=== PATIENT | male | born 1965 | race Caucasian/White ===

== ENCOUNTER 2017-02-20 08:30 | Emergency (ER) | payer SELFPAY ==
[~2017-02-20] VITALS: Ht 165.1 cm; Wt 56.7 kg
[~2017-02-20 08:30] MED LIST: AMOX-358 PO; ASPI81TA55 PO; ATOR20TA49 PO; BNZ20T PO; CARI350T27 PO; CEPH-38 PO; CEPH500C PO; CIPR500T78 PO; CLON1TAB3; DIAZ5TAB3 PO; HYDR-2997 PO; HYDR-757 PO; HYDR12.56; HYDR1TAB PO; NAPR-243 PO; ONDA8TAB13 PO; PHN100C PO; TRAM50TA2 PO
--- NOTE | 2017-02-20 09:36 | Diagnostic Imaging Report ---
3 views of the left hand. INDICATION: Injury and pain to the second and fifth digits. FINDINGS: There is a dorsal and medial dislocation of the PIP joint of the little finger. No fracture seen. No radiopaque foreign body. IMPRESSION: Dorsal dislocation of the PIP joint in the little finger. Dictated by: Dictated on workstation # [id number]
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
[2017-02-20 09:57] VITALS: BP 132/90
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
== END 2017-02-20 09:57 | disposition home or self-care (01) ==
LOC: EDUNIT# 08:30 → ER 08:33
DX: S63.287A Dislocation of proximal interphalangeal joint of left little finger, initial encounter (principal); I10 Essential (primary) hypertension; F41.9 Anxiety disorder, unspecified; Z79.82 Long term (current) use of aspirin; Z87.81 Personal history of (healed) traumatic fracture; V86.09XA Driver of other special all-terrain or other off-road motor vehicle injured in traffic accident, initial encounter
CPT/HCPCS: 26770; 29130; 73130

== ENCOUNTER 2017-04-29 11:52 | Observation (INO) | payer OTHER ==
[~2017-04-29] VITALS: Ht 165.1 cm; Wt 58.7 kg
[2017-04-29] MEDS ORDERED: ASPIRIN 81 MG CHEW (CHILDREN'S ASA) PO ONE (12:00)
[2017-04-29] MEDS ORDERED: RX-NITROGLYCERIN 0.4 MG TAB BTL 25'S SL PRN (12:00)
[2017-04-29 12:17] LABS: BASOPHILS # (AUTO) 0.1 10^3/uL (0.0-0.1); BASOPHILS % (AUTO) 1 % (0-10); EOSINOPHILS # (AUTO) 0.5 10^3/uL (0.0-0.3); EOSINOPHILS % (AUTO) 6 % (0-10); LYMPHOCYTES # (AUTO) 2.2 X 10^3 (1.0-4.0); LYMPHOCYTES % (AUTO) 24 % (12-44); MEAN CORPUSCULAR HEMOGLOBIN 32 PG (25-34); MEAN CORPUSCULAR HGB CONC 34 G/DL (32-36); MEAN CORPUSCULAR VOLUME 95 FL (80-99); MEAN PLATELET VOLUME 9.3 FL (7.4-10.4); MONOCYTES # (AUTO) 1.6 X 10^3 (0.0-1.0); MONOCYTES % (AUTO) 18 % (0-12); NEUTROPHILS # (AUTO) 4.7 X 10^3 (1.8-7.8); NEUTROPHILS % (AUTO) 52 % (42-75); PLATELET COUNT 217 10^3/uL (130-400); RED BLOOD COUNT 4.55 10^6/uL (4.35-5.85); RED CELL DISTRIBUTION WIDTH 13.2 % (10.0-14.5); WHITE BLOOD COUNT 9.2 10^3/uL (4.3-11.0)
[2017-04-29 12:24] LABS: INR 0.9 (0.8-1.4); PROTHROMBIN TIME PATIENT 11.9 SEC (12.2-14.7)
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
[2017-04-29 12:35] LABS: ALANINE AMINOTRANSFERASE 37 U/L (0-55); ALBUMIN 3.8 GM/DL (3.2-4.5); AMYLASE 124 U/L (25-125); ANION GAP 8 MMOL/L (5-14); ASPARTATE AMINO TRANSFERASE 28 U/L (5-34); BILIRUBIN,TOTAL 0.2 MG/DL (0.1-1.0); BLOOD UREA NITROGEN 13 MG/DL (7-18); BUN/CREATININE RATIO 16; CALCIUM 9.2 MG/DL (8.5-10.1); CARBON DIOXIDE 26 MMOL/L (21-32); CHLORIDE 103 MMOL/L (98-107); CREATINE KINASE 156 U/L (30-200); CREATININE SERUM 0.81 MG/DL (0.60-1.30); GFR ESTIMATED > 60; GLUCOSE 75 MG/DL (70-105); LIPASE 22 U/L (8-78); POTASSIUM 4.1 MMOL/L (3.6-5.0); SODIUM 137 MMOL/L (135-145); TOTAL PROTEIN 6.9 GM/DL (6.4-8.2)
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
[2017-04-29 12:42] LABS: TROPONIN I < 0.30 NG/ML (<0.30)
[2017-04-29 12:43] LABS: ALCOHOL < 10 MG/DL (<10)
--- NOTE | 2017-04-29 13:00 | Diagnostic Imaging Report ---
INDICATION: Chest pain yesterday, which have resolved. Returned during the night with numbness and tingling left arm. TECHNIQUE: Single view chest 12:17 p.m. CORRELATION STUDY: 02/08/2016. FINDINGS: The heart size, mediastinal configuration and pulmonary vascularity are within normal limits. The lungs remain somewhat hyperinflated but overall are clear with no consolidating infiltrate. There is no significant effusion or pneumothorax. Old healed right mid clavicle fracture present. IMPRESSION: 1. Negative for acute abnormality. Dictated by: Dictated on workstation # [id number]
[2017-04-29] MEDS ORDERED: IOHEXOL 350 MG/ML 150 ML (OMNIPAQUE 350) VIAL IV ONE (13:15)
[2017-04-29] MEDS ORDERED: CATHETER FLUSH 10 ML SYR IV PRN ×2 (13:15→15:45)
[2017-04-29] MEDS ORDERED: NS 100 ML (IVPB) BAG IV ONE (13:15)
--- NOTE | 2017-04-29 13:52 | Diagnostic Imaging Report ---
PROCEDURE: CT angiography of the chest with contrast. TECHNIQUE: Multiple contiguous axial images were obtained through the chest after the uneventful bolus administration of intravenous contrast. Reconstructed CTA MIP acquisitions were also performed. INDICATION: Left upper chest pain, history of cardiac disease. FINDINGS: The pulmonary arterial branches are well opacified and are widely patent with no filling defect. The thoracic aorta is patent and nonaneurysmal. There is no pleural or pericardial effusion. No lung mass or suspicious nodularity. No acute or focal infiltrate. No soft tissue or osseous chest wall pathology. There is very slight biapical pleural/parenchymal scarring, chronic. No thoracic adenopathy. The visualized upper abdomen is nonacute. IMPRESSION: Negative for PE or other acute abnormalities. Dictated by: Dictated on workstation # [id number]
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
--- NOTE | 2017-04-29 15:28 | Consultation-Cardiology ---
HPI-Cardiology Cardiology Consultation: Date of Consultation 04/29/17 Time Seen by Provider: 14:45 Date of Admission 04-29-17 Attending Physician Jasen Ross MD Admitting Physician Jasen Ross MD Consulting Physician Stas Salinas MD HPI: Chief Complaint: Chest pain Mr. Long is a 51 year old male being admitted to ICU from the ED. He reports that approx 2 days ago he was helping a friend put a sump pump in his basement. He was putting away his tools when he had a sudden onset of localized , left sided chest pain. He describes it as a sharp, stabbing pain that did not radiate. It is localized. It is worse with a deep breath. He states he took his friends nitro which did provide some relief, but the pain was still present. It persisted throughout the rest of the day. He states around 3:00 this morning he woke up from sleep with sharp stabbing, localized, left sided pain. He does not report any shortness of breath with the chest pain. He states he took his pillow and laid on the floor bent over his pillow on his knees and the pain did improve to the point he could rest. He is currently reporting the discomfort is still present. It is worse with palpation. The area is approx 2 finger breadths wide. It is worse with a deep breath. No c/o palpitations, syncope or near syncope. He reports he did have some diaphoresis with the pain early this morning. Review of Systems-Cardiology Review of Systems Constitutional: As described under HPI, No As described under HPI, No no symptoms reported, No chills, No fever, No lightheadedness Eyes: No As described under HPI, No no symptoms reported, No blindness, No blurred vision, No contact lenses, No drainage, No decreased acuity, No foreign body sensation, No pain, No vision change Ears/Nose/Throat: No As described under HPI, No no symptoms reported, No chronic hearing loss, No ear discharge, No ear pain, No nasal drainage, No ulcerations Respiratory: As described under HPI Cardiovascular: As described under HPI Gastrointestinal: No abdomen distended, No abdominal pain, No blood streaked bowels, No constipation, No diarrhea, No nausea, No vomiting, No stool coloration changes Genitourinary: No burning, No dysuria, No discharge, No frequency, No flank pain, No hematuria, No urgency Skin: No rash, No skin related problems, No ulcerations Psychiatric/Neurological: anxiety, No depression, No seizure, No focal weakness , No syncope Hematologic: No bleeding abnormalities PEJ-Vgmuxh-Usjjrv Hx Patient Social History Alcohol Use: Regular Use (DRINKS DAILY--6-8 BEERS / DAY) Recreational Drug Use: Yes (THC, STATES " COCAINE AND OTHER STUFF IN COLLEGE" DENIES IV USE) Smoking Status: Current Everyday Smoker (1/2 PPD) Type Used: Cigarettes Recent Foreign Travel: No Recent Infectious Disease Expo: No Immunizations Up To Date Tetanus Booster (TDap): Less than 5yrs Past Medical History PMH As described under Assessment. Family Medical History Family Medical History: He reports family h/o CVA and HTN in both of his parents. Family History: Cardiovascular disease Hypertension Allergies and Home Medications Allergies Coded Allergies: NKANo Known Allergies (Unverified Allergy, Mild, 01/01/09) Home Medications Amoxicillin/Potassium Clav 1 Each Tablet, 1 EACH PO BID, #14 Prescribed by: CARMELO LOUIE on 08/08/16 1331 Aspirin 81 Mg Tablet.dr, 81 MG PO DAILY, #100 Prescribed by: COLLINS ROSS on 02/10/16 0722 Atorvastatin Calcium 20 Mg Tablet, 20 MG PO DAILY, #30 Ref 3 Prescribed by: COLLINS ROSS on 02/10/16 0722 Benazepril Hcl 20 Mg Tablet, 20 MG PO HS, (Reported) Diazepam 5 Mg Tablet, 5 MG PO Q8H PRN for ANXIETY, (Reported) Hydrocodone/Acetaminophen 1 Each Tablet, 1 EACH PO Q4H PRN for PAIN, #10 Prescribed by: CARMELO LOUIE on 08/08/16 1331 Phenytoin Sodium 100 Mg Cap, 400 MG PO HS, (Reported) TAKES 4 (100MG) CAPSULES Physical Exam-Cardiology Physical Exam Vital Signs/I&O Vital Sign - Last 12Hours 04/29/17 12:00 Temp 97.6 Pulse 78 Resp 20 B/P (MAP) 140/84 Pulse Ox 100 O2 Delivery Room Air Capillary Refill : Less Than 3 Seconds Constitutional: appears stated age, No apparent distress, well-developed, well- nourished HEENT: PERRL, No discharge, hearing is well preserved, oral hygience is good, No ulceration, No xanthelasmas are seen Neck: No carotid bruit, carotid pulses are 2 + bilaterally Respiratory: No accessory muscle use, No respiratory distress, lungs clear to percussion, lungs clear to auscultation Cardiovascular: regular rate-rhythm, No JVD, S1 and S2 Gastrointestinal: No tender, soft, round, audible bowel sounds, No spleenomegaly Rectal: deferred Extremities: No clubbing, No cyanosis, No significant edema Neurologic/Psychiatric: alert, oriented x 3, power is 5/5 both on sides Skin: No rash, No ulcerations Data Review Labs Laboratory Tests 04/29/17 12:00: White Blood Count 9.2, Red Blood Count 4.55, Hemoglobin 14.6, Hematocrit 43, Mean Corpuscular Volume 95, Mean Corpuscular Hemoglobin 32, Mean Corpuscular Hemoglobin Concent 34, Red Cell Distribution Width 13.2, Platelet Count 217, Mean Platelet Volume 9.3, Neutrophils (%) (Auto) 52, Lymphocytes (%) (Auto) 24, Monocytes (%) (Auto) 18H, Eosinophils (%) (Auto) 6, Basophils (%) (Auto) 1, Neutrophils # (Auto) 4.7, Lymphocytes # (Auto) 2.2, Monocytes # (Auto) 1.6H, Eosinophils # (Auto) 0.5H, Basophils # (Auto) 0.1, Prothrombin Time 11.9L, INR Comment 0.9, Activated Partial Thromboplast Time 26, Sodium Level 137, Potassium Level 4.1, Chloride Level 103, Carbon Dioxide Level 26, Anion Gap 8, Blood Urea Nitrogen 13, Creatinine 0.81, Estimat Glomerular Filtration Rate > 60 , BUN/Creatinine Ratio 16, Glucose Level 75, Calcium Level 9.2, Magnesium Level 2.0, Total Bilirubin 0.2, Aspartate Amino Transf (AST/SGOT) 28, Alanine Aminotransferase (ALT/SGPT) 37, Alkaline Phosphatase 129, Total Creatine Kinase 156, Creatine Kinase MB 0.8, Troponin I < 0.30, B-Type Natriuretic Peptide 11.4 , Total Protein 6.9, Albumin 3.8, Amylase Level 124, Lipase 22, Phenytoin ( Dilantin) Level 5.4L, Serum Alcohol < 10 04/29/17 13:27: Urine Opiates Screen NEGATIVE, Urine Oxycodone Screen NEGATIVE, Urine Methadone Screen NEGATIVE, Urine Propoxyphene Screen NEGATIVE, Urine Barbiturates Screen POSITIVEH, Ur Tricyclic Antidepressants Screen NEGATIVE, Urine Phencyclidine Screen NEGATIVE, Urine Amphetamines Screen NEGATIVE, Urine Methamphetamines Screen NEGATIVE, Urine Benzodiazepines Screen POSITIVEH, Urine Cocaine Screen NEGATIVE, Urine Cannabinoids Screen POSITIVEH Radiology NAME: KIMBERLY LONG [facility] REC#: [id number] PT STATUS: REG ER : 1965 PHYSICIAN: SHALA DE DIOS DO ADMIT DATE: 04/29/17/ER Signed Date of Exam: 04/29/17 CHEST 1 VIEW, AP/PA ONLY INDICATION: Chest pain yesterday, which have resolved. Returned during the night with numbness and tingling left arm. TECHNIQUE: Single view chest 12:17 p.m. CORRELATION STUDY: 02/08/2016. FINDINGS: The heart size, mediastinal configuration and pulmonary vascularity are within normal limits. The lungs remain somewhat hyperinflated but overall are clear with no consolidating infiltrate. There is no significant effusion or pneumothorax. Old healed right mid clavicle fracture present. IMPRESSION: 1. Negative for acute abnormality. Dictated by: Dictated on workstation # [id number] Dict: 04/29/17 1256 Trans: 04/29/17 1346 Interpreted by: CLIFTON NO DO Electronically signed by: CLIFTON NO DO 04/29/17 1346 NAME: KIMBERLY LONG [facility] REC#: [id number] PT STATUS: REG ER : 1965 PHYSICIAN: SHALA DE DIOS DO ADMIT DATE: 04/29/17/ER Draft Date of Exam:04/29/17 CT ANGIO CHEST W PROCEDURE: CT angiography of the chest with contrast. TECHNIQUE: Multiple contiguous axial images were obtained through the chest after the uneventful bolus administration of intravenous contrast. Reconstructed CTA MIP acquisitions were also performed. INDICATION: Left upper chest pain, history of cardiac disease. FINDINGS: The pulmonary arterial branches are well opacified and are widely patent with no filling defect. The thoracic aorta is patent and nonaneurysmal. There is no pleural or pericardial effusion. No lung mass or suspicious nodularity. No acute or focal infiltrate. No soft tissue or osseous chest wall pathology. There is very slight biapical pleural/parenchymal scarring, chronic. No thoracic adenopathy. The visualized upper abdomen is nonacute. IMPRESSION: Negative for PE or other acute abnormalities. Dictated on workstation # [id number] Dict: 04/29/17 1343 Trans: 04/29/17 1352 [id number] Interpreted by: SUKUMAR GORMAN Electronically signed by: ECG Impression ECG Initial ECG Rhythm: Normal Sinus A/P-Cardiology Assessment/Admission Diagnosis Chest pain without evidence of ACS CAD. Cardiac cath of 02/09/16 showed 40% ostial LAD and 50-60% ostial/prox D1 with an FFR of 0.91 across a combination of both these lesions, indicating hemodynamic non-significance. Other cors had mild plaque. LVEF was 55%. LVEDP was normal Echo of 02/08/16 showed LVEF 60%, trivial MR & TR, no significant valvular stenosis, normal PASP HTN Seizure disorder - pt reports d/t multiple head traumas (Dilantin tx) managed by his PCP GERD H/O ETOH abuse Anxiety Tobaccoism - cessation advised H/O marijuana use (positive drug screen on 04-29-17) - cessation advised Discussion and Recomendations Chest pain without evidence of ACS thus far. D/t his symptoms, risk factors and history as listed above we do advise further cardiac work up. We advise echocardiogram to evaluate structure and LVEF. We advise MPI to evaluate perfusion. He feels he can ambulate on a treadmill. We will do an exercise cardiolite. We will continue serial cardiac analyzers. Continue home medications. Monitor lab. We would like to thank medical services for the consult. Further recommendations will be based on his hospital course. This consult is being scribed by Sarah Self APRN on behalf of Dr. Salinas after physical examination and discussion regarding plan of care. Physician Assessment Physician Assessment mild to mod L upper parasternal and midsternal discomfort for over 24 hours, has a pleuritic component Lungs: clear Cor: reg Ext: no c/c/e A&R * As documented in our note above that I updated (italics) and as noted below * I had a detailed discussion with him, examined him, and answered questions in detail * Risk factor modification reviewed * I advised immediate and complete smoking cessation MATTHEW SELF [facility] Apr 29, 2017 15:28 STAS SALINAS MD FACP FAC CCDS Apr 29, 2017 16:07
[2017-04-29 15:45] VITALS: BP 144/93
[2017-04-29] MEDS ORDERED: amLODIPine 5 MG (NORVASC) TAB PO PRN (15:45)
[2017-04-29] MEDS ORDERED: morphine INJ 4 MG/ML 1 ML (VIAL/SYRINGE) IV PRN (15:45)
[2017-04-29] MEDS: PANTOPRAZOLE 40 MG (PROTONIX) TAB PO SCH (17:34)
[2017-04-29] MEDS ORDERED: ALPR1TAB7 PO (17:40)
[2017-04-29] MEDS ORDERED: DIPH25CA79 PO (17:42)
[2017-04-29 17:45] VITALS: BP 133/84
[2017-04-29 18:15] VITALS: BP 131/85
[2017-04-29] MEDS: LORazepam 1 MG (ATIVAN) TAB PO PRN ×2 (18:29→22:04)
[2017-04-29 20:00] VITALS: BP 144/91
[2017-04-29] MEDS ORDERED: BENAZEPRIL 20 MG (LOTENSIN) TAB PO SCH (21:00)
[2017-04-29] MEDS ORDERED: PHENYTOIN 100 MG (DILANTIN) CAP PO SCH (21:00)
[2017-04-29] MEDS: NITROGLYCERIN SUBLINGUAL 0.4 MG TAB (NITROSTAT) SL PRN ×2 (21:02→21:10)
[2017-04-29] MEDS: CATHETER FLUSH 10 ML SYR IV SCH (21:04)
[2017-04-30] VITALS: BP 104/69
[2017-04-30 04:00] VITALS: BP 104/68
[2017-04-30 04:53] LABS: BASOPHILS % (AUTO) 1 % (0-10); EOSINOPHILS # (AUTO) 0.5 10^3/uL (0.0-0.3); EOSINOPHILS % (AUTO) 6 % (0-10); LYMPHOCYTES % (AUTO) 25 % (12-44); MEAN CORPUSCULAR HEMOGLOBIN 31 PG (25-34); MEAN CORPUSCULAR HGB CONC 33 G/DL (32-36); MEAN CORPUSCULAR VOLUME 95 FL (80-99); MEAN PLATELET VOLUME 9.8 FL (7.4-10.4); MONOCYTES # (AUTO) 1.2 X 10^3 (0.0-1.0); MONOCYTES % (AUTO) 14 % (0-12); NEUTROPHILS # (AUTO) 4.4 X 10^3 (1.8-7.8); NEUTROPHILS % (AUTO) 54 % (42-75); PLATELET COUNT 220 10^3/uL (130-400); RED BLOOD COUNT 4.59 10^6/uL (4.35-5.85); RED CELL DISTRIBUTION WIDTH 13.4 % (10.0-14.5)
[2017-04-30 05:24] LABS: ALANINE AMINOTRANSFERASE 36 U/L (0-55); ALBUMIN 3.6 GM/DL (3.2-4.5); ANION GAP 8 MMOL/L (5-14); ASPARTATE AMINO TRANSFERASE 31 U/L (5-34); BILIRUBIN,TOTAL 0.4 MG/DL (0.1-1.0); BLOOD UREA NITROGEN 13 MG/DL (7-18); BUN/CREATININE RATIO 15; CALCIUM 8.9 MG/DL (8.5-10.1); CARBON DIOXIDE 26 MMOL/L (21-32); CHLORIDE 102 MMOL/L (98-107); CHOLESTEROL 208 MG/DL (< 200); CREATININE SERUM 0.87 MG/DL (0.60-1.30); DIRECT LDL 116 MG/DL (1-129); GFR ESTIMATED > 60; GLUCOSE 114 MG/DL (70-105); POTASSIUM 4.4 MMOL/L (3.6-5.0); SODIUM 136 MMOL/L (135-145); TOTAL PROTEIN 6.5 GM/DL (6.4-8.2); TRIGLYCERIDES 146 MG/DL (<150); VLDL CHOLESTEROL 29 MG/DL (5-40)
[2017-04-30] MEDS: CATHETER FLUSH 10 ML SYR IV SCH (06:51)
[2017-04-30] MEDS: PANTOPRAZOLE 40 MG (PROTONIX) TAB PO SCH (06:51)
[2017-04-30 08:13] VITALS: BP 122/69
[2017-04-30] MEDS ORDERED: ASPIRIN E.C. 325 MG (ECOTRIN) TABLET PO SCH (09:00)
[2017-04-30] MEDS ORDERED: ASPIRIN 81 MG CHEW (CHILDREN'S ASA) PO SCH (09:00)
--- NOTE | 2017-04-30 09:16 | Progress Note-Cardiology ---
Cardiology SOAP Progress Note Subjective: Chest discomfort to the left chest wall, which is worse with palpation and localized is unchanged. No c/o dyspnea, palpitations, syncope or near syncope. No LE edema. Objective: I&O/Vital Signs Vital Sign - Last 12Hours 04/30/17 04/30/17 04/30/17 04/30/17 00:00 00:00 00:00 01:00 Temp 98.1 Pulse 77 72 B/P (MAP) 104/69 Pulse Ox 97 98 O2 Delivery Room Air Room Air 04/30/17 04/30/17 04/30/17 04/30/17 04:00 04:00 04:00 07:00 Temp 97.1 Pulse 67 78 B/P (MAP) 104/68 Pulse Ox 98 98 O2 Delivery Room Air Room Air 04/30/17 08:13 Pulse 77 B/P (MAP) 122/69 Pulse Ox 96 Weight (Pounds): 129 Weight (Ounces): 6.0 Weight (Calculated Kilograms): 58.139908 Constitutional: appears stated age, No apparent distress, well-developed, well- nourished Respiratory: No accessory muscle use, No respiratory distress, lungs clear to percussion, lungs clear to auscultation Cardiovascular: regular rate-rhythm, No JVD, S1 and S2 Gastrointestional: No tender, soft, round, audible bowel sounds, No spleenomegaly Extremities: No clubbing, No cyanosis, No significant edema Neurologic/Psychiatric: alert, oriented x 3, power is 5/5 both on sides Skin: No rash, No ulcerations Results/Procedures: Labs Laboratory Tests 04/29/17 12:00: White Blood Count 9.2, Red Blood Count 4.55, Hemoglobin 14.6, Hematocrit 43, Mean Corpuscular Volume 95, Mean Corpuscular Hemoglobin 32, Mean Corpuscular Hemoglobin Concent 34, Red Cell Distribution Width 13.2, Platelet Count 217, Mean Platelet Volume 9.3, Neutrophils (%) (Auto) 52, Lymphocytes (%) (Auto) 24, Monocytes (%) (Auto) 18H, Eosinophils (%) (Auto) 6, Basophils (%) (Auto) 1, Neutrophils # (Auto) 4.7, Lymphocytes # (Auto) 2.2, Monocytes # (Auto) 1.6H, Eosinophils # (Auto) 0.5H, Basophils # (Auto) 0.1, Prothrombin Time 11.9L, INR Comment 0.9, Activated Partial Thromboplast Time 26, Sodium Level 137, Potassium Level 4.1, Chloride Level 103, Carbon Dioxide Level 26, Anion Gap 8, Blood Urea Nitrogen 13, Creatinine 0.81, Estimat Glomerular Filtration Rate > 60 , BUN/Creatinine Ratio 16, Glucose Level 75, Calcium Level 9.2, Magnesium Level 2.0, Total Bilirubin 0.2, Aspartate Amino Transf (AST/SGOT) 28, Alanine Aminotransferase (ALT/SGPT) 37, Alkaline Phosphatase 129, Total Creatine Kinase 156, Creatine Kinase MB 0.8, Troponin I < 0.30, B-Type Natriuretic Peptide 11.4 , Total Protein 6.9, Albumin 3.8, Amylase Level 124, Lipase 22, Phenytoin ( Dilantin) Level 5.4L, Serum Alcohol < 10 04/29/17 13:27: Urine Opiates Screen NEGATIVE, Urine Oxycodone Screen NEGATIVE, Urine Methadone Screen NEGATIVE, Urine Propoxyphene Screen NEGATIVE, Urine Barbiturates Screen POSITIVEH, Ur Tricyclic Antidepressants Screen NEGATIVE, Urine Phencyclidine Screen NEGATIVE, Urine Amphetamines Screen NEGATIVE, Urine Methamphetamines Screen NEGATIVE, Urine Benzodiazepines Screen POSITIVEH, Urine Cocaine Screen NEGATIVE, Urine Cannabinoids Screen POSITIVEH 04/29/17 18:10: Troponin I < 0.30 04/30/17 03:48: White Blood Count 8.0, Red Blood Count 4.59, Hemoglobin 14.4, Hematocrit 44, Mean Corpuscular Volume 95, Mean Corpuscular Hemoglobin 31, Mean Corpuscular Hemoglobin Concent 33, Red Cell Distribution Width 13.4, Platelet Count 220, Mean Platelet Volume 9.8, Neutrophils (%) (Auto) 54, Lymphocytes (%) (Auto) 25, Monocytes (%) (Auto) 14H, Eosinophils (%) (Auto) 6, Basophils (%) (Auto) 1, Neutrophils # (Auto) 4.4, Lymphocytes # (Auto) 2.0, Monocytes # (Auto) 1.2H, Eosinophils # (Auto) 0.5H, Basophils # (Auto) 0.0, Sodium Level 136, Potassium Level 4.4, Chloride Level 102, Carbon Dioxide Level 26, Anion Gap 8, Blood Urea Nitrogen 13, Creatinine 0.87, Estimat Glomerular Filtration Rate > 60, BUN/ Creatinine Ratio 15, Glucose Level 114H, Calcium Level 8.9, Magnesium Level 2.0 , Total Bilirubin 0.4, Aspartate Amino Transf (AST/SGOT) 31, Alanine Aminotransferase (ALT/SGPT) 36, Alkaline Phosphatase 124, Total Protein 6.5, Albumin 3.6, Triglycerides Level 146, Cholesterol Level 208H, LDL Cholesterol Direct 116, VLDL Cholesterol 29, HDL Cholesterol 71H A/P: Assessment: Chest pain without evidence of ACS Echo 04/29/17: LVEF 60-65%, mild MR MPI 04/30/17: No evidence of ischemia or infarction; normal LVEF CAD. Cardiac cath of 02/09/16 showed 40% ostial LAD and 50-60% ostial/prox D1 with an FFR of 0.91 across a combination of both these lesions, indicating hemodynamic non-significance. Other cors had mild plaque. LVEF was 55%. LVEDP was normal HTN Seizure disorder - pt reports d/t multiple head traumas (Dilantin tx) managed by his PCP GERD H/O ETOH abuse Anxiety Tobaccoism - cessation advised H/O marijuana use (positive drug screen on 04-29-17) - cessation advised Plan: Chest pain without evidence of ACS Exercise cardiolite this morning - pending Echocardiogram Continue current medication regimen Add statin to regimen Physician Assessment Physician Assessment Generally better today; can take a deep breath w/o significant discomfort; no shooting pains Lungs: clear Cor: reg Ext: no c/c/e A&R * As documented in our note above that I updated (italics) and as noted below * We advised and discussed risk factor modification, in particular immediate and complete smoking cessation * Outpatient f/u advise MATTHEW NICOLE TILE SPRAYER Apr 30, 2017 09:16 MOJGAN GARCIA MD FACP FAC CCDS Apr 30, 2017 09:58
[2017-04-30] MEDS ORDERED: ASPI-999 PO (10:16)
[2017-04-30] MEDS ORDERED: ATOR40TA PO (10:16)
[2017-04-30] MEDS ORDERED: AMLO10TA2 PO (10:20)
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
[2017-04-30 12:00] VITALS: BP 127/83
--- NOTE | 2017-04-30 13:59 | STRESS TEST ---
DATE OF SERVICE: 04/30/2017 PRIMARY PHYSICIAN: Dr. Mathew. ORDERING PHYSICIAN: Gisela Self APRN OTHER PHYSICIAN: Dr. Garcia. CLINICAL DIAGNOSIS: Chest discomfort, coronary artery disease. Baseline images were carried out following injection of 10.37 mCi of technetium 99m Tetrofosmin. Subsequently exercise was carried out on a treadmill. Leonel protocol was employed. Heart rate and blood pressure responses to exercise were normal. He had some chest discomfort at baseline which did not change significantly with exercise. The test was stopped on account of generalized fatigue. There is considerable baseline artifact with exercise but there does not appear to be significant ST segment depression. There was no significant arrhythmia. After he had attained 85% of maximum predicted heart rate, 31.1 mCi of technetium 99m Tetrofosmin were injected and the exercise was continued for more than for another minute. Overall, he tolerated the procedure well. He had attained 91% of maximum predicted heart rate. He attained 9.7 mets of workload. He exercised for a total of 8 minutes and 9 seconds in the Leonel protocol. Review of images at rest and following stress does not indicate any significant perfusion defects consistent with any significant myocardial ischemia or infarction. Gated images show normal global left ventricular systolic function with normal regional wall motion. Left ventricular ejection fraction is calculated to be 61%. Left ventricular end diastolic volume is 47 mL. TID is absent (0.97). CONCLUSIONS: 1. No evidence of any significant myocardial ischemia or infarction on this study. 2. Normal regional wall motion. 3. Normal global left ventricular systolic function with a calculated ejection fraction of 61%. 4. Normal left ventricular cavity size. Job ID: [id number] DocumentID: [id number] Dictated Date: 04/30/2017 09:46:15 Traffic Reporter Date: 04/30/2017 10:14:24 Dictated By: MOJGAN GARCIA MD, MA, FACP, FACC,
[2017-04-30] MEDS ORDERED: ATORVASTATIN 40 MG (LIPITOR) TABLET PO SCH (21:00)
== END 2017-04-30 11:36 | disposition home or self-care (01) ==
LOC: EDUNIT# 11:52 → ER 11:57 → UNDOADMOB 15:03 → ICU 15:03 → UNDODISOB 04-30 15:45
PROVIDERS: ADMIT Internal Medicine; ATTEND Family Medicine
DX: R07.9 Chest pain, unspecified (principal); E78.5 Hyperlipidemia, unspecified; K21.9 Gastro-esophageal reflux disease without esophagitis; B19.20 Unspecified viral hepatitis C without hepatic coma; Z79.82 Long term (current) use of aspirin; Z79.899 Other long term (current) drug therapy; F17.210 Nicotine dependence, cigarettes, uncomplicated
CPT/HCPCS: 36415; 71010; 71275; 78452; 80053; 80061; 80185; 80306; 80320; 82150; 82550; 82553; 83690; 83735; 83880; 84484; 85025; 85610; 85730; 93005; 93017; 93041; 93306

== ENCOUNTER → 2017-12-15 | Outpatient (CLI) | payer SELFPAY ==
[~2017-12-15] MED LIST changes: +ALPR1TAB7 PO; +AMLO10TA2 PO; +ASPI-999 PO; +ATOR40TA PO; +DIPH25CA79 PO
--- NOTE | 2017-12-15 13:50 | Diagnostic Imaging Report ---
PROCEDURE: US right lower extremity venous. TECHNIQUE: Multiple real-time grayscale images were obtained over the right lower extremity in various projections. Additional duplex Doppler and color Doppler images were also obtained. INDICATION: Right thigh pain. FINDINGS: There is no evidence of a right lower extremity DVT. The right lower extremity deep venous system demonstrates normal compressibility with normal response to augmentation and Valsalva. No fluid collection is detected. IMPRESSION: No evidence of right lower extremity DVT. Dictated by: Dictated on workstation # [id number]
== END ==
LOC: RAD 12:27
PROVIDERS: ATTEND Family Medicine
DX: M79.651 Pain in right thigh (principal)

== ENCOUNTER 2020-11-13 10:57 | Emergency (ER) | payer SELFPAY ==
[~2020-11-13] VITALS: Ht 165.1 cm; Wt 62.0 kg
[~2020-11-13 10:57] MED LIST changes: +AMLO-251 PO; -AMLO10TA2 PO; +HYDR-4226 PO; -TRAM50TA2 PO; +TRM50T PO
[2020-11-13] MEDS ORDERED: LACTATED RINGERS 1,000 ML IV STA (11:35)
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
[2020-11-13] MEDS ORDERED: fentaNYL INJECTION 100 MCG/2 ML AMP IVP ONE (11:45)
[2020-11-13 11:51] LABS: BILIRUBIN,URINE NEGATIVE (NEGATIVE); CLARITY,URINE CLEAR; COLOR,URINE YELLOW; GLUCOSE, URINE (UA) NEGATIVE (NEGATIVE); KETONES,URINE NEGATIVE (NEGATIVE); LEUKOCYTE ESTERASE ,URINE NEGATIVE (NEGATIVE); NITRITE,URINE NEGATIVE (NEGATIVE); PROTEIN,URINE NEGATIVE (NEGATIVE)
[2020-11-13 12:02] LABS: BASOPHILS # (AUTO) 0.1 10^3/uL (0.0-0.1); BASOPHILS % (AUTO) 1 % (0-10); EOSINOPHILS # (AUTO) 0.3 10^3/uL (0.0-0.3); EOSINOPHILS % (AUTO) 2 % (0-10); HEMATOCRIT 47 % (40-54); HEMOGLOBIN 15.9 g/dL (13.3-17.7); LYMPHOCYTES # (AUTO) 2.1 10^3/uL (1.0-4.0); LYMPHOCYTES % (AUTO) 15 % (12-44); MEAN CORPUSCULAR HEMOGLOBIN 31 pg (25-34); MEAN CORPUSCULAR HGB CONC 34 g/dL (32-36); MEAN CORPUSCULAR VOLUME 92 fL (80-99); MEAN PLATELET VOLUME 9.1 fL (9.0-12.2); MONOCYTES # (AUTO) 1.8 10^3/uL (0.0-1.0); MONOCYTES % (AUTO) 12 % (0-12); NEUTROPHILS # (AUTO) 10.4 10^3/uL (1.8-7.8); NEUTROPHILS % (AUTO) 71 % (42-75); PLATELET COUNT 254 10^3/uL (130-400); WHITE BLOOD COUNT 14.7 10^3/uL (4.3-11.0)
[2020-11-13 12:09] LABS: BACTERIA,URINE NEGATIVE /HPF; RBC,URINE 0-2 /HPF
[2020-11-13 12:13] LABS: CHLORIDE 105 MMOL/L (98-107); POTASSIUM 5.2 MMOL/L (3.6-5.0); SODIUM 135 MMOL/L (135-145)
[2020-11-13 12:14] LABS: CALCIUM 8.9 MG/DL (8.5-10.1)
[2020-11-13 12:15] LABS: GLUCOSE 95 MG/DL (70-105)
[2020-11-13 12:17] LABS: BILIRUBIN,TOTAL 0.3 MG/DL (0.1-1.0); CARBON DIOXIDE 20 MMOL/L (21-32)
[2020-11-13 12:19] LABS: ALKALINE PHOSPHATASE 129 U/L (40-136); CREATININE SERUM 0.84 MG/DL (0.60-1.30); GFR ESTIMATED > 60
[2020-11-13 12:20] LABS: BUN/CREATININE RATIO 12
[2020-11-13 12:22] LABS: ALANINE AMINOTRANSFERASE 38 U/L (0-55)
[2020-11-13 12:30] LABS: BAND NEUTROPHILS 4 %; LYMPHOCYTES % (MANUAL) 11 %; MONOCYTES % (MANUAL) 12 %; NEUTROPHILS % (MANUAL) 70 %
[2020-11-13 12:31] LABS: BASOPHILS % (MANUAL) 0 %; EOSINOPHILS % (MANUAL) 3 %; RBC MORPH NORMAL
[2020-11-13] MEDS ORDERED: IOHEXOL 350 MG/ML 100 ML (OMNIPAQUE 350) VIAL IV ONE (12:45)
[2020-11-13] MEDS ORDERED: CATHETER FLUSH 10 ML SYR IV PRN (12:45)
[2020-11-13] MEDS ORDERED: NS 100 ML (IVPB) BAG IV ONE (12:45)
[2020-11-13] MEDS ORDERED: HOLD METFORMIN - RECEIVED CONTRAST 20 ML VIAL IV SCH (12:45)
--- NOTE | 2020-11-13 13:10 | Diagnostic Imaging Report ---
EXAMINATION: CT Abdomen and Pelvis with intravenous contrast. TECHNIQUE: Multiple contiguous axial images were obtained through the abdomen and pelvis after the uneventful administration of intravenous contrast. All CT scans use one or more of the following dose optimizing techniques: automated exposure control, MA and/or KvP adjustment based on a patient size and exam type, or iterative reconstruction. HISTORY: Left lower quadrant pain. COMPARISON: 07/22/2015. FINDINGS: Limited views of the lower thorax are unremarkable. The liver is normal without focal lesion. There is no biliary ductal dilation. Gallbladder is normal. Pancreas is normal. Spleen is normal. Adrenal glands are normal. The kidneys are normal. There is no hydronephrosis. Urinary bladder is normal. There is thickening of the sigmoid colon with multiple diverticula and surrounding stranding. No abscess or jaleesa perforation is seen. No free fluid or air. No abdominal or pelvic lymphadenopathy. Aorta is normal in caliber without aneurysm. There are no suspicious osseous lesions. IMPRESSION: 1. Inflammation of the sigmoid colon favored to reflect diverticulitis. However, given the long segment thickening of the colon, colonoscopy is recommended when the illness resolves to ensure there is no underlying neoplasm. Dictated by: Dictated on workstation # [id number]
[2020-11-13] MEDS ORDERED: AMOX-358 PO (13:54)
[2020-11-13] MEDS ORDERED: ONDA4TAB11 PO (13:54)
[2020-11-13] MEDS ORDERED: ACHD5005 PO (13:54)
[2020-11-13 14:02] VITALS: BP 159/108
== END 2020-11-13 14:02 | disposition home or self-care (01) ==
LOC: EDUNIT# 10:57 → ER 10:59
DX: K57.32 Diverticulitis of large intestine without perforation or abscess without bleeding (principal); F41.9 Anxiety disorder, unspecified; I10 Essential (primary) hypertension; G40.909 Epilepsy, unspecified, not intractable, without status epilepticus; Z87.891 Personal history of nicotine dependence; Z87.820 Personal history of traumatic brain injury; Z82.49 Family history of ischemic heart disease and other diseases of the circulatory system; Z79.82 Long term (current) use of aspirin
CPT/HCPCS: 36415; 74177; 80053; 81000; 82274; 85007; 85027

== ENCOUNTER 2020-11-27 17:49 | Emergency (ER) | payer SELFPAY ==
[~2020-11-27 17:49] MED LIST changes: +ACHD5005 PO; +ONDA4TAB11 PO
[2020-11-28] MEDS ORDERED: CIPR500T5 PO (14:16)
[2020-11-28] MEDS ORDERED: ONDA4TAB11 SL (14:23)
[2020-11-28] MEDS ORDERED: ACHD5005 PO (14:23)
[2020-11-28] MEDS ORDERED: METR500T PO (14:23)
== END 2020-11-27 18:53 | disposition left against medical advice (07) ==
LOC: EDUNIT# 17:49 → ER 17:50
DX: K59.00 Constipation, unspecified (principal); R11.0 Nausea

== ENCOUNTER 2020-11-28 10:45 | Emergency (ER) | payer SELFPAY ==
[~2020-11-28] VITALS: Ht 167.7 cm; Wt 62.2 kg
[2020-11-28] MEDS ORDERED: fentaNYL INJ 100 MCG/2 ML AMP IVP ONE (11:15)
[2020-11-28 11:22] LABS: BASOPHILS # (AUTO) 0.1 10^3/uL (0.0-0.1); BASOPHILS % (AUTO) 1 % (0-10); EOSINOPHILS # (AUTO) 0.5 10^3/uL (0.0-0.3); EOSINOPHILS % (AUTO) 6 % (0-10); HEMATOCRIT 48 % (40-54); LYMPHOCYTES # (AUTO) 1.8 10^3/uL (1.0-4.0); LYMPHOCYTES % (AUTO) 22 % (12-44); MEAN CORPUSCULAR HEMOGLOBIN 31 pg (25-34); MEAN CORPUSCULAR HGB CONC 33 g/dL (32-36); MEAN CORPUSCULAR VOLUME 94 fL (80-99); MEAN PLATELET VOLUME 9.1 fL (9.0-12.2); MONOCYTES # (AUTO) 1.2 10^3/uL (0.0-1.0); MONOCYTES % (AUTO) 14 % (0-12); NEUTROPHILS # (AUTO) 4.8 10^3/uL (1.8-7.8); NEUTROPHILS % (AUTO) 57 % (42-75); PLATELET COUNT 312 10^3/uL (130-400); WHITE BLOOD COUNT 8.4 10^3/uL (4.3-11.0)
[2020-11-28 11:37] LABS: BILIRUBIN,URINE NEGATIVE (NEGATIVE); CLARITY,URINE CLEAR; COLOR,URINE YELLOW; GLUCOSE, URINE (UA) NEGATIVE (NEGATIVE); KETONES,URINE NEGATIVE (NEGATIVE); LEUKOCYTE ESTERASE ,URINE NEGATIVE (NEGATIVE); NITRITE,URINE NEGATIVE (NEGATIVE); PROTEIN,URINE NEGATIVE (NEGATIVE)
[2020-11-28] MEDS ORDERED: CATHETER FLUSH 10 ML SYR IV PRN (11:45)
[2020-11-28] MEDS ORDERED: NS 100 ML (IVPB) BAG IV ONE (11:45)
[2020-11-28] MEDS ORDERED: IOHEXOL 350 MG/ML 100 ML (OMNIPAQUE 350) VIAL IV ONE (11:45)
[2020-11-28] MEDS ORDERED: HOLD METFORMIN - RECEIVED CONTRAST 20 ML VIAL IV SCH (11:45)
[2020-11-28 11:49] LABS: ALANINE AMINOTRANSFERASE 26 U/L (0-55); ALBUMIN 3.9 GM/DL (3.2-4.5); ALKALINE PHOSPHATASE 117 U/L (40-136); BILIRUBIN,TOTAL 0.2 MG/DL (0.1-1.0); BUN/CREATININE RATIO 13; CALCIUM 9.5 MG/DL (8.5-10.1); CARBON DIOXIDE 28 MMOL/L (21-32); CHLORIDE 104 MMOL/L (98-107); CREATININE SERUM 0.84 MG/DL (0.60-1.30); GFR ESTIMATED > 60; GLUCOSE 68 MG/DL (70-105); LIPASE 22 U/L (8-78); POTASSIUM 3.8 MMOL/L (3.6-5.0); SODIUM 139 MMOL/L (135-145); TOTAL PROTEIN 7.2 GM/DL (6.4-8.2)
[2020-11-28 11:56] LABS: BACTERIA,URINE NEGATIVE /HPF
--- NOTE | 2020-11-28 13:49 | Diagnostic Imaging Report ---
PROCEDURE: CT abdomen and pelvis with contrast. TECHNIQUE: Multiple contiguous axial images were obtained through the abdomen and pelvis after administration of intravenous contrast. Auto Exposure Controls were utilized during the CT exam to meet ALARA standards for radiation dose reduction. All CT scans use one or more of the following dose optimizing techniques: automated exposure control, MA and/or KvP adjustment based on patient size and exam type or iterative reconstruction. INDICATION: Abdominal pain, constipation, diverticulitis. COMPARISON: 11/13/2020 FINDINGS: The lung bases are clear. The heart is normal in size. There is no pericardial effusion. The liver demonstrates no focal lesions. The spleen appears normal. The pancreas is normal. The adrenal glands appear normal. The kidneys are normal. The bowel loops are nondistended without obstruction. There is diverticulosis of the descending and sigmoid colon. There is significant wall thickening of the sigmoid colon, measuring 8 cm in length. There is mild surrounding pericolonic edema. No significant lymphadenopathy is seen. There is thickening of the urinary bladder wall. No acute osseous abnormality is seen. There are mild degenerative changes in the spine. IMPRESSION: 1. Wall thickening of the sigmoid colon with mild adjacent edema. This may represent improving diverticulitis or possibly colitis of the sigmoid colon, but again, neoplasm is not excluded. Once the patient is able, consider endoscopy. Dictated by: Dictated on workstation # [id number]
[2020-11-28] MEDS ORDERED: PIPERACILLIN SODIUM/TAZOBACTAM 4.5 GM in NS (IVPB) 100 ML IV ONE (14:15)
[2020-11-28] MEDS ORDERED: KETOROLAC 30 MG/ML VIAL IVP ONE (14:15)
[2020-11-28] MEDS ORDERED: CIPR500T5 PO (14:16)
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
[2020-11-28] MEDS ORDERED: ACHD5005 PO (14:23)
[2020-11-28] MEDS ORDERED: ONDA4TAB11 SL (14:23)
[2020-11-28] MEDS ORDERED: METR500T PO (14:23)
[2020-11-28 15:40] VITALS: BP 135/86
== END 2020-11-28 15:41 | disposition home or self-care (01) ==
LOC: EDUNIT# 10:45 → ER 10:47
DX: K52.9 Noninfective gastroenteritis and colitis, unspecified (principal); I10 Essential (primary) hypertension; F41.9 Anxiety disorder, unspecified; G40.909 Epilepsy, unspecified, not intractable, without status epilepticus; Z87.820 Personal history of traumatic brain injury; Z82.49 Family history of ischemic heart disease and other diseases of the circulatory system; Z79.82 Long term (current) use of aspirin
CPT/HCPCS: 36415; 74177; 80053; 81000; 83690; 85025; 86141

== ENCOUNTER 2021-05-08 10:38 | Emergency (ER) | payer OTHER ==
[~2021-05-08] VITALS: Ht 167.7 cm; Wt 62.2 kg
[~2021-05-08 10:38] MED LIST changes: +CIPR500T5 PO; +METR500T PO; +ONDA4TAB11 SL
[2021-05-08 12:19] LABS: BILIRUBIN,URINE NEGATIVE (NEGATIVE); CLARITY,URINE CLEAR; COLOR,URINE YELLOW; GLUCOSE, URINE (UA) NEGATIVE (NEGATIVE); KETONES,URINE NEGATIVE (NEGATIVE); LEUKOCYTE ESTERASE ,URINE NEGATIVE (NEGATIVE); NITRITE,URINE NEGATIVE (NEGATIVE); PH,URINE 5.5 (5-9); PROTEIN,URINE NEGATIVE (NEGATIVE)
[2021-05-08 12:22] LABS: BASOPHILS # (AUTO) 0.1 10^3/uL (0.0-0.1); BASOPHILS % (AUTO) 1 % (0-10); EOSINOPHILS # (AUTO) 0.3 10^3/uL (0.0-0.3); EOSINOPHILS % (AUTO) 4 % (0-10); HEMATOCRIT 45 % (40-54); HEMOGLOBIN 14.3 g/dL (13.3-17.7); LYMPHOCYTES # (AUTO) 2.2 10^3/uL (1.0-4.0); LYMPHOCYTES % (AUTO) 26 % (12-44); MEAN CORPUSCULAR HEMOGLOBIN 31 pg (25-34); MEAN CORPUSCULAR HGB CONC 32 g/dL (32-36); MEAN CORPUSCULAR VOLUME 97 fL (80-99); MEAN PLATELET VOLUME 9.9 fL (9.0-12.2); MONOCYTES # (AUTO) 1.5 10^3/uL (0.0-1.0); MONOCYTES % (AUTO) 18 % (0-12); NEUTROPHILS # (AUTO) 4.3 10^3/uL (1.8-7.8); NEUTROPHILS % (AUTO) 51 % (42-75); PLATELET COUNT 311 10^3/uL (130-400); WHITE BLOOD COUNT 8.5 10^3/uL (4.3-11.0)
[2021-05-08 12:26] LABS: ALBUMIN 3.5 GM/DL (3.2-4.5)
[2021-05-08 12:27] LABS: CALCIUM 9.1 MG/DL (8.5-10.1)
[2021-05-08 12:28] LABS: TOTAL PROTEIN 6.8 GM/DL (6.4-8.2)
[2021-05-08 12:28] LABS: BACTERIA,URINE NEGATIVE /HPF; SQUAMOUS EPITHELIAL CELL,UR RARE /HPF
[2021-05-08 12:30] LABS: BILIRUBIN,TOTAL 0.2 MG/DL (0.1-1.0)
[2021-05-08] MEDS ORDERED: NS IV 1000 ML 1,000 ML IV SCH (12:30)
[2021-05-08] MEDS ORDERED: fentaNYL INJ 100 MCG/2 ML AMP IVP STA (12:31)
[2021-05-08 12:32] LABS: CREATININE SERUM 0.83 MG/DL (0.60-1.30)
[2021-05-08] MEDS ORDERED: HOLD METFORMIN - RECEIVED CONTRAST 20 ML VIAL IV SCH (12:45)
[2021-05-08] MEDS ORDERED: IOHEXOL 350 MG/ML 100 ML (OMNIPAQUE 350) VIAL IV ONE (12:45)
[2021-05-08] MEDS ORDERED: NS 100 ML (IVPB) BAG IV ONE (12:45)
[2021-05-08] MEDS ORDERED: CATHETER FLUSH 10 ML SYR IV PRN (12:45)
[2021-05-08 12:49] LABS: BAND NEUTROPHILS 1 %; BASOPHILS % (MANUAL) 0 %; EOSINOPHILS % (MANUAL) 2 %; LYMPHOCYTES % (MANUAL) 30 %; MONOCYTES % (MANUAL) 21 %; NEUTROPHILS % (MANUAL) 46 %
[2021-05-08 12:50] LABS: RBC MORPH NORMAL
[2021-05-08] MEDS ORDERED: DEXTROSE 50% 50 ML (IMS) SYR IV ONE (13:00)
--- NOTE | 2021-05-08 13:41 | Diagnostic Imaging Report ---
PROCEDURE: CT abdomen and pelvis with contrast. TECHNIQUE: Multiple contiguous axial images were obtained through the abdomen and pelvis after administration of intravenous contrast. Auto Exposure Controls were utilized during the CT exam to meet ALARA standards for radiation dose reduction. All CT scans use one or more of the following dose optimizing techniques: Automated exposure control, MA and/or KvP adjustment based on patient size and exam type or iterative reconstruction. INDICATION: Diverticulitis. COMPARISON: 11/28/2020. FINDINGS: No focal hepatic or splenic abnormality is identified. Gallbladder, pancreas, adrenal glands, and kidneys are unremarkable. There is no evidence of free fluid within the abdomen or pelvis. Mural thickening is again demonstrated throughout the sigmoid colon. There may be minimal surrounding edema and/or inflammation. Unopacified urinary bladder is unremarkable. There is no evidence of appendiceal inflammation. There is mild aortoiliac atherosclerotic calcification. IMPRESSION: Continued mural thickening in the sigmoid colon may represent persistent or recurrent colitis. Given the possible duration of this finding, endoscopic assessment is recommended to exclude other underlying pathology such as colonic neoplasm. Dictated by: Dictated on workstation # [id number]
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
[2021-05-08] MEDS ORDERED: TRM50T PO (13:56)
[2021-05-08] MEDS ORDERED: METR-145 PO (13:56)
[2021-05-08] MEDS ORDERED: CIPR500T5 PO (13:56)
[2021-05-08 14:09] VITALS: BP 151/109
== END 2021-05-08 14:08 | disposition home or self-care (01) ==
LOC: EDUNIT# 10:38 → ER 10:41
DX: K52.9 Noninfective gastroenteritis and colitis, unspecified (principal); I10 Essential (primary) hypertension; G40.909 Epilepsy, unspecified, not intractable, without status epilepticus; F41.9 Anxiety disorder, unspecified; Z79.899 Other long term (current) drug therapy; Z86.16 Personal history of COVID-19; Z87.820 Personal history of traumatic brain injury; Z79.82 Long term (current) use of aspirin
CPT/HCPCS: 36415; 74177; 80053; 81000; 82947; 85007; 85027

== ENCOUNTER 2021-05-30 10:19 | Outpatient (CLI) | payer OTHER ==
[~2021-05-30] VITALS: Ht 165 cm; Wt 52.0 kg
[~2021-05-30 10:19] MED LIST changes: +METR-145 PO
== END 2021-06-04 11:05 | disposition home or self-care (01) ==
LOC: PREOP 10:19
PROVIDERS: ATTEND Internal Medicine
DX: Z01.818 Encounter for other preprocedural examination (principal)

== ENCOUNTER 2021-06-08 07:52 | Day surgery (SDC) | payer OTHER ==
[~2021-06-08] VITALS: Ht 165 cm; Wt 52.0 kg
[2021-06-08] VITALS (7 sets, daily range): BP systolic 102–152; BP diastolic 56–93
[2021-06-08] MEDS ORDERED: LACTATED RINGERS 1,000 ML IV STA (08:00)
[2021-06-08] MEDS ORDERED: LIDOCAINE JELLY 2% 6 ML SYRINGE MM PRN (08:00)
[2021-06-08] MEDS ORDERED: LACTATED RINGERS 1,000 ML IV ONE (08:06)
[2021-06-08] MEDS ORDERED: PROPOFOL INJECTION 50 ML IV ONE ×2 (09:28→09:41)
[2021-06-08] MEDS ORDERED: MIDAZOLAM 2 MG/2 ML (VERSED) VIAL ONE (09:28)
--- NOTE | 2021-06-08 10:35 | Pre-Op Note & Conscious Sedat ---
Pre-Operative Progress Note H&P Reviewed The H&P was reviewed, patient examined and no changes noted. Date H&P Reviewed: Jun 08, 2021 Time H&P Reviewed: 08:30 Conscious Sedation Pre-Proced ASA Score 2 For ASA 3 and 4: Consider anesthesia and medical clearance. Also, for patients with a history of failed moderate sedation consider anesthesia. Airway Lungs Heart ASA score ASA 1: a normal healthy patient ASA 2: a patient with a mild systemic disease (mid diabetes, controlled hypertension, obesity ASA 3: a patient with a severe systemic disease that limits activity (angina, COPD, prior Myocardial infarction) ASA 4: a patient with an incapacitating disease that is a constant threat to life (CHF, renal failure) ASA 5: a moribund patient not expected to survive 24 hrs. (ruptured aneurysm) ASA 6: a declared brain- patient whose organs are being harvested. For emergent operations, add the letter E after the classification Mallampati Classification Grade 2 Sedation Plan Analgesia, Amnesia, Plan communicated to team members, Discussed options with patient/fam, Discussed risks with patient/fam The patient is an appropriate candidate to undergo the planned procedure, sedation, and anesthesia. The patient immediately re-assessed prior to indication. DOUG BAILEY MD Jun 08, 2021 10:35
--- NOTE | 2021-06-20 15:07 | Anesthesia-General Post-Op ---
MAC Significant Intra-Op Events Notes anesthesia addendum for mac anesthesia on 06-08 @1030 Patient Condition Mental Status/LOC: Same as Preop Cardiovascular: Satisfactory Nausea/Vomiting: Absent Respiratory: Satisfactory Pain: Controlled Complications: Absent Post Op Complications Complications None Follow Up Care/Instructions Patient Instructions None needed. Anesthesiology Discharge Order Discharge Order Patient is doing well, no complaints, stable vital signs, no apparent adverse anesthesia problems. No complications reported per nursing. JARAD ESCOBAR CUT ROLL MACHINE OPERATOR Jun 20, 2021 15:07
--- NOTE | 2021-06-24 22:18 | OPERATIVE REPORT ---
DATE OF SERVICE: 06/08/2021 COLONOSCOPY SUMMARY INDICATION FOR THE PROCEDURE: Followup of diverticulitis. DESCRIPTION OF PROCEDURE: The patient was placed in the left lateral decubitus position. Prior to undergoing colonoscopy, digital rectal evaluation was performed. Anal sphincter tone was normal and the perianal reflexes intact. Prostate is normal in size, anodular, nontender to digital inspection. No abnormalities were noted on digital inspection of anal canal or distal rectal vault. The colonoscope was then inserted into the rectum and under direct visualization advanced to cecum. The cecum was identified by identification of the esophageal strap. Photographic documentation obtained. Quality of prep was good. FINDINGS: No evidence for internal or external hemorrhoids and the rectum was unremarkable. Present throughout the sigmoid colon where a moderate number of small to medium size diverticulum without evidence for diverticulitis. No other sigmoid colonic abnormalities were appreciated. Several diverticulum were noted in the descending colon, which was otherwise unremarkable. The splenic flexure, transverse colon, hepatic flexure, ascending colon and cecum were unremarkable. ASSESSMENT: Moderate diverticular disease predominantly in the sigmoid colon into a lesser extent. The descending colon was present without evidence for diverticulitis. This was otherwise normal colonoscopy to the cecum. As the patient is not aware of any family history for colon cancer, at this point would advocate consideration for repeat screening colonoscopy in 10 years. Advocated increasing fiber in his diet. Job ID: [id number] DocumentID: [id number] Dictated Date: 06/24/2021 19:21:03 Massage Therapist Date: 06/24/2021 22:17:28 Dictated By: DOUG BAILEY MD
== END 2021-06-08 11:02 | disposition home or self-care (01) ==
LOC: ENDO 07:52
PROVIDERS: ATTEND Internal Medicine
DX: Z09 Encounter for follow-up examination after completed treatment for conditions other than malignant neoplasm (principal); K57.30 Diverticulosis of large intestine without perforation or abscess without bleeding; G40.909 Epilepsy, unspecified, not intractable, without status epilepticus; F41.1 Generalized anxiety disorder; I10 Essential (primary) hypertension; Z79.899 Other long term (current) drug therapy

== ENCOUNTER → 2022-02-12 | Outpatient (CLI) | payer BC, OTHER | LOC: LAB 13:22 | PROVIDERS: ATTEND Internal Medicine | DX: B18.2 Chronic viral hepatitis C (principal) | CPT/HCPCS: 36415; 87522; 87902 ==

== ENCOUNTER → 2022-10-28 | Outpatient (CLI) | payer BC ==
--- NOTE | 2022-10-28 17:17 | Diagnostic Imaging Report ---
PROCEDURE: MRI lumbar spine. TECHNIQUE: Multiplanar, multisequence MRI of the lumbar spine was performed without contrast. INDICATION: Low back pain.. COMPARISON: None. FINDINGS: There are 5 lumbar-type vertebral bodies for the purposes of this report. Normal alignment. Vertebral body heights are preserved. Modic type I degenerative endplate changes in the superior endplate of L2. No abnormal signal in the conus which terminates at T12-L1. Normal morphology of the cauda equina. Visualized pelvis and paravertebral soft tissues are unremarkable. L1-L2: No spinal canal, lateral recess or neural foraminal narrowing. L2-L3: No spinal canal, lateral recess narrowing. Disc space height loss results in mild to moderate bilateral neural foraminal narrowing. L3-L4: No spinal canal or lateral recess narrowing. Moderate right and mild left neural foraminal narrowing due to disc space height loss. L4-L5: No spinal canal or lateral recess narrowing. Mild to moderate bilateral neural foraminal narrowing. L5-S1: No spinal canal, lateral recess or neural foraminal narrowing. IMPRESSION: 1. Spondylotic changes result in scattered mild and moderate neural foraminal narrowing as above. No high-grade spinal canal stenosis. 2. No acute osseous findings. Modic type I degenerative endplate changes in the superior endplate of L2. Dictated by: Dictated on workstation # [id number]
--- NOTE | 2022-10-28 18:03 | Diagnostic Imaging Report ---
CLINICAL INDICATION: Patient having spine pain, neck and lower back pain x2 weeks. EXAM: MRI of the cervical spine performed without IV contrast. Sequences include sagittal T2, sagittal T1, sagittal T2 fat-sat, and axial T2. COMPARISON: CT scan of the cervical spine without contrast dated 07/22/2015. FINDINGS: There is no acute cervical spine fracture or dislocation. There is no significant Modic degenerative signal changes. Limited visualization of the posterior fossa is unremarkable. There is localized subtle deformity of the cord seen at the C5-C6 level due to disk disease. There are degenerative spurs throughout the cervical spine and facet arthropathy. There is no significant paraspinal soft tissue abnormality. C1-C2: There are degenerative spurs involving the atlantoodontoid interval anteriorly. There is no significant central canal stenosis. C2-C3: There is no significant central canal or neural foramen narrowing. C3-C4: There is a diffuse disk bulge with superimposed small posterior disk herniation and bilateral uncinate spurs. There is mild bilateral facet arthropathy. There is severe left neural foramen narrowing and at least moderate right neural foramen narrowing. C4-C5: There is mild diffuse disk bulge. There is mild to moderate left neural foramen narrowing and no significant right neural foramen narrowing. There is no significant central canal stenosis. C5-C6: There is diffuse disk bulge and mild loss of disk space height. There are disk spurs posteriorly and bilateral uncinate spurs. There is mild bilateral facet arthropathy. There is severe bilateral neural foraminal narrowing. There is moderate central canal stenosis. C6-C7: There is a diffuse disk bulge with small posterior disk spurs and bilateral uncinate spurs. There is mild central canal narrowing and moderate to severe bilateral neural foraminal narrowing. C7-T1: There is mild bilateral facet arthropathy. There is no significant central canal stenosis. There is moderate left neural foramen narrowing and no significant right neural foramen narrowing. IMPRESSION: There is multilevel cervical spine degenerative disk disease, as described above. Dictated by: Dictated on workstation # [id number]
== END ==
LOC: RAD 14:00
PROVIDERS: ATTEND Nurse Practitioner Family
DX: M50.11 Cervical disc disorder with radiculopathy, high cervical region (principal); M47.22 Other spondylosis with radiculopathy, cervical region; M48.02 Spinal stenosis, cervical region; R20.2 Paresthesia of skin; M54.41 Lumbago with sciatica, right side; M62.838 Other muscle spasm; S23.3XXA Sprain of ligaments of thoracic spine, initial encounter; X58.XXXA Exposure to other specified factors, initial encounter
CPT/HCPCS: 72141; 72148